=== PATIENT | female | born 1940 | race Caucasian/White ===

== ENCOUNTER 2016-10-23 16:59 | Emergency (ER) | payer MEDICARE, OTHER | END 2016-10-23 20:28 | disposition critical access hospital (66) | LOC: ER 16:59 | DX: E86.0 Dehydration (principal); N17.9 Acute kidney failure, unspecified; R10.30 Lower abdominal pain, unspecified; L03.116 Cellulitis of left lower limb; L03.115 Cellulitis of right lower limb; L89.302 Pressure ulcer of unspecified buttock, stage 2; Z90.49 Acquired absence of other specified parts of digestive tract; Z79.899 Other long term (current) drug therapy; I50.9 Heart failure, unspecified | CPT/HCPCS: 36415; 51702; 87502; 96361; 96374; 96375; J0696 ==

== ENCOUNTER 2016-10-23 16:59 | Inpatient (IN) | payer MEDICARE, OTHER | END 2016-10-26 07:15 | disposition short-term general hospital (02) | DRG 300 | LOC: ER 16:59 → MED 20:29 | PROVIDERS: ADMIT Internal Medicine | DX: I70.203 Unspecified atherosclerosis of native arteries of extremities, bilateral legs (principal); L03.116 Cellulitis of left lower limb; N39.0 Urinary tract infection, site not specified; E87.1 Hypo-osmolality and hyponatremia; N17.9 Acute kidney failure, unspecified; L03.115 Cellulitis of right lower limb; E86.0 Dehydration; I25.5 Ischemic cardiomyopathy; R29.898 Other symptoms and signs involving the musculoskeletal system; E78.5 Hyperlipidemia, unspecified; F41.9 Anxiety disorder, unspecified; G89.4 Chronic pain syndrome; J44.9 Chronic obstructive pulmonary disease, unspecified; Z87.891 Personal history of nicotine dependence; Z90.49 Acquired absence of other specified parts of digestive tract; Z79.84 Long term (current) use of oral hypoglycemic drugs; Z79.4 Long term (current) use of insulin; Z79.899 Other long term (current) drug therapy; I25.10 Atherosclerotic heart disease of native coronary artery without angina pectoris; Z87.440 Personal history of urinary (tract) infections; L89.322 Pressure ulcer of left buttock, stage 2; L89.312 Pressure ulcer of right buttock, stage 2; E11.9 Type 2 diabetes mellitus without complications; Z91.19 Patient's noncompliance with other medical treatment and regimen | CPT/HCPCS: 36415; 73706; 87502; 97162-GP; 97166; J0696; J1650; Q9967 ==

== ENCOUNTER 2016-12-07 21:23 | Emergency (ER) | payer MEDICARE, OTHER | END 2016-12-08 00:18 | disposition short-term general hospital (02) | LOC: ER 21:23 | DX: S72.142A Displaced intertrochanteric fracture of left femur, initial encounter for closed fracture (principal); J44.1 Chronic obstructive pulmonary disease with (acute) exacerbation; N39.0 Urinary tract infection, site not specified; I50.9 Heart failure, unspecified; E11.9 Type 2 diabetes mellitus without complications; I25.10 Atherosclerotic heart disease of native coronary artery without angina pectoris; Z87.891 Personal history of nicotine dependence; Z99.81 Dependence on supplemental oxygen; Z98.51 Tubal ligation status; W01.0XXA Fall on same level from slipping, tripping and stumbling without subsequent striking against object, initial encounter | CPT/HCPCS: 36415; 51702; 73502-LT; 73552-LT; 96361; 96365; 96375; 96376; J0696 ==